=== PATIENT | female | born 1975 | race Caucasian/White ===

== ENCOUNTER 2019-03-28 15:38 | Emergency (ER) | payer OTHER ==
[~2019-03-28] VITALS: Ht 149.9 cm; Wt 54.4 kg
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
[2019-03-28] MEDS ORDERED: TDAP [DIPH/PERTUSSIS/TET] 0.5 ML VIAL IM ONE ×2 (16:30→17:29)
[2019-03-28] MEDS ORDERED: LIDOCAINE 1%-EPI 1:100,000 20 ML VIAL TP ONE (17:00)
[2019-03-28] MEDS ORDERED: ONDANSETRON 4 MG TAB.RAPDIS SL ONE (17:00)
[2019-03-28] MEDS ORDERED: HYDROCODONE/APAP 10/325MG 1 EA TABLET PO ONE (17:00)
[2019-03-28] MEDS ORDERED: ONDANSETRON 4 MG TAB.RAPDIS ONE (17:27)
[2019-03-28] MEDS ORDERED: HYDROCODONE/APAP 10/325MG 1 EA TABLET ONE (17:27)
--- NOTE | 2019-03-28 18:43 | NUR ---
Patient discharged to home in stable condition. Written and verbal after care instructions given. Patient verbalizes understanding of instruction. IV removed. Catheter intact and site benign. Pressure and 4x4 applied to site. No bleeding noted.
[2019-03-28 18:45] VITALS: BP 129/75
== END 2019-03-28 18:46 | disposition home or self-care (01) ==
LOC: ER 15:44
DX: S01.01XA Laceration without foreign body of scalp, initial encounter (principal); V49.49XA Driver injured in collision with other motor vehicles in traffic accident, initial encounter; Y93.89 Activity, other specified; Y92.413 State road as the place of occurrence of the external cause; Y99.8 Other external cause status
CPT/HCPCS: 12002; 70450; 90471; 90715; 99284; A6403; Q0162